=== PATIENT | female | born 1975 | race Caucasian/White ===

== ENCOUNTER → 2020-06-05 | Outpatient (CLI) | payer OTHER ==
[~2020-06-05] MED LIST: AUGMENTIN 875-1 EACH PO; BENADRYL25 MG PO; BUPRENORPHIN-N1 EACH PO; BUSPIRONE HCL15 MG PO; CATAPRES 0.1MG0.1 MG PO; CIPRO500 MG PO; DEPAKOTE ER500 MG PO; DESYREL 50 MG T50 MG PO; ESTRACE2 MG PO; FLAGYL500 MG PO; METHOCARBAMOL500 MG PO; METHOTREXATE T2.5 MG PO; NEURONTIN800 MG PO; PEPCID20 MG PO; PERCOCET 5-3251 EACH PO; PHENERGAN 25 MG25 M1 PO; PREDNISONE 10 M10 MG PO; PROTONIX20 MG PO; PROZAC40 MG PO; REGLAN10 MG PO; ROBAFEN-DM SYR118 ML PO; SEROQUEL200 MG PO; TENORMIN 25 MG25 MG PO; VENTOLIN HFA 66.7 GM INH; VISTARIL50 MG PO; VRAYLAR4.5 MG PO; ZOFRAN4 MG PO
== END ==
LOC: HEART CORB 10:30
DX: I25.10 Atherosclerotic heart disease of native coronary artery without angina pectoris (principal); R07.2 Precordial pain; R06.02 Shortness of breath; I10 Essential (primary) hypertension
CPT/HCPCS: 93306

== ENCOUNTER → 2020-06-17 | Outpatient (CLI) | payer OTHER | LOC: HEART CORB 10:20 | DX: R07.2 Precordial pain (principal); R06.02 Shortness of breath; R93.1 Abnormal findings on diagnostic imaging of heart and coronary circulation | CPT/HCPCS: 78452; A9502; J2785 ==

== ENCOUNTER 2020-09-28 00:01 | Emergency (ER) | payer OTHER ==
[~2020-09-28 00:01] MED LIST changes: -ROBAFEN-DM SYR118 ML PO
[2020-09-28 02:30] LABS: HEMOGLOBIN 14.1 gm/dl (12.3-15.3); RED BLOOD COUNT 4.35 M/UL (4.00-5.10); WHITE BLOOD COUNT 10.5 K/UL (4.5-11.0)
[2020-09-28 02:52] LABS: BUN/CREATININE RATIO 16 (0-10)
[2020-09-28] MEDS ORDERED: ROBAFEN-DM SYR118 ML PO (04:47)
== END 2020-09-28 06:05 | disposition home or self-care (01) ==
LOC: ER1 00:01
PROVIDERS: Physician Assistant
DX: J40 Bronchitis, not specified as acute or chronic (principal); J44.9 Chronic obstructive pulmonary disease, unspecified; F17.210 Nicotine dependence, cigarettes, uncomplicated; Z20.822 Contact with and (suspected) exposure to COVID-19
CPT/HCPCS: 0240U; 71045; 80053; 82550; 82553; 83874; 84484; 85025; 93005; 99285; J2270

== ENCOUNTER 2020-11-09 23:13 | Emergency (ER) | payer OTHER ==
[~2020-11-09 23:13] MED LIST changes: +ROBAFEN-DM SYR118 ML PO
[2020-11-10] MEDS ORDERED: LODINE CAP 300300 MG PO (03:08)
== END 2020-11-10 03:55 | disposition home or self-care (01) ==
LOC: ER1 23:13
DX: S93.402A Sprain of unspecified ligament of left ankle, initial encounter (principal); S93.602A Unspecified sprain of left foot, initial encounter; J44.9 Chronic obstructive pulmonary disease, unspecified; M06.9 Rheumatoid arthritis, unspecified; Z90.49 Acquired absence of other specified parts of digestive tract; Z90.710 Acquired absence of both cervix and uterus; X50.0XXA Overexertion from strenuous movement or load, initial encounter
CPT/HCPCS: 73564; 73590; 73610; 73630; 96372; 99283; J1885

== ENCOUNTER → 2020-11-13 | Outpatient (CLI) | payer OTHER ==
[~2020-11-13] MED LIST changes: +LODINE CAP 300300 MG PO
== END ==
LOC: CT 10:30 → KOH-I 16:04
DX: S99.912A Unspecified injury of left ankle, initial encounter (principal); M19.072 Primary osteoarthritis, left ankle and foot
CPT/HCPCS: 73700

== ENCOUNTER → 2020-12-02 | Outpatient (CLI) | payer OTHER | LOC: KOH-I 15:55 | DX: M23.52 Chronic instability of knee, left knee (principal); M17.12 Unilateral primary osteoarthritis, left knee | CPT/HCPCS: 73721 ==

== ENCOUNTER → 2020-12-26 | Outpatient (CLI) | payer OTHER | LOC: KOH-I 14:16 | DX: S93.422A Sprain of deltoid ligament of left ankle, initial encounter (principal); S96.812A Strain of other specified muscles and tendons at ankle and foot level, left foot, initial encounter; M15.9 Polyosteoarthritis, unspecified; G89.29 Other chronic pain; R93.6 Abnormal findings on diagnostic imaging of limbs | CPT/HCPCS: 73721 ==

== ENCOUNTER 2021-02-18 14:33 | Emergency (ER) | payer OTHER ==
[2021-02-18] MEDS ORDERED: CYCLOBENZAPRINE5 MG PO (16:51)
[2021-02-18] MEDS ORDERED: NAPROSYN500 MG PO (16:51)
== END 2021-02-18 17:19 | disposition home or self-care (01) ==
LOC: ER1 14:33
DX: M54.42 Lumbago with sciatica, left side (principal); G89.29 Other chronic pain; I10 Essential (primary) hypertension; Z90.49 Acquired absence of other specified parts of digestive tract; F17.200 Nicotine dependence, unspecified, uncomplicated; Z79.899 Other long term (current) drug therapy
CPT/HCPCS: 96372; 99283; J1100; J1885; J2360

== ENCOUNTER 2021-02-20 17:32 | Emergency (ER) | payer OTHER ==
[~2021-02-20 17:32] MED LIST changes: +CYCLOBENZAPRINE5 MG PO; +NAPROSYN500 MG PO
== END 2021-02-20 21:01 | disposition left against medical advice (07) ==
LOC: ER1 17:32
DX: M54.50 Low back pain, unspecified (principal); M51.36 Other intervertebral disc degeneration, lumbar region; J44.9 Chronic obstructive pulmonary disease, unspecified; I10 Essential (primary) hypertension; F17.210 Nicotine dependence, cigarettes, uncomplicated
CPT/HCPCS: 72131; 99283

== ENCOUNTER 2021-03-06 19:04 | Emergency (ER) | payer OTHER | END 2021-03-06 21:15 | disposition home or self-care (01) | LOC: ER1 19:04 | DX: G89.29 Other chronic pain (principal); M54.50 Low back pain, unspecified; F17.200 Nicotine dependence, unspecified, uncomplicated | CPT/HCPCS: 96372; 99283; J1170; J2930 ==

== ENCOUNTER 2021-04-24 18:19 | Emergency (ER) | payer OTHER | END 2021-04-24 18:30 | disposition left against medical advice (07) | LOC: ER1 18:19 | DX: Z53.21 Procedure and treatment not carried out due to patient leaving prior to being seen by health care provider (principal) ==